=== PATIENT | male | born 1990 | race Caucasian/White ===

== ENCOUNTER 2016-11-21 00:42 | Emergency (ER) | payer SELFPAY ==
[2016-11-21 00:59] VITALS: BP 144/102
[2016-11-21] MEDS ORDERED: Penicillin V Potassium 500 MG Tab PO ONE (01:06)
--- NOTE | 2016-11-21 01:07 | EDM.PDOC ---
ED HPI ENT - General Chief Complaint: ENT Problem Stated Complaint: TOOTH PAIN Time Seen by Provider: 11/21/16 00:50 Source of Information: Reports: Patient, RN notes reviewed, Significant Other ( Girlfriend) History Limitations: Reports: No limitations - History of Present Illness INITIAL COMMENTS - FREE TEXT/NARRATIVE: The patient states that he developed upper right dental pain 11/19/2016. He states that he believes he had a root canal in that tooth many years ago, then the tooth later broke, and now he believes it may have re-broken. He reports having a bad-tasting oral drainage. No recent fever. He has not contacted a dentist. He does not have a primary care provider. Review of the patient's medical records finds that he was seen in this ED 2014 for a heroin overdose. His drug screen at that time was positive for opiates, benzodiazepines, and marijuana, and his alcohol level was 0.07. When asked today if he use recreational drugs, he replied that he does not, because he is on probation for reckless endangerment. - Related Data Allergies/ADRs: Allergies Allergy/AdvReac Type Severity Reaction Status Date / Time ibuprofen [From Motrin] Allergy Hives Verified 11/21/16 01:03 Home Meds: Home Meds Penicillin V Potassium [IJD: Penicillin V Potassium] 1 tab PO Q6H #40 tab [Rx] Past Medical History - Past Health History Medical/Surgical History: Denies Medical/Surgical History Social & Family History - Tobacco Use Smoking Status *Q: Current Every Day Smoker Years of Tobacco use: 9 Packs/Tins Daily: 1 - Caffeine Use Caffeine Use: Reports: None - Alcohol Use Alcohol Use History: Yes Days Per Week of Alcohol Use: 2 Number of Drinks Per Day: 4 Total Drinks Per Week: 8 Alcohol Use Frequency: Socially - Recreational Drug Use Recreational Drug Use: Yes Recreational Drug Type: Reports: Benzodiazepines, Heroin, Marijuana/Hashish Recreational Drug Use Frequency: Weekly - Living Situation & Occupation Living situation: Reports: single, with family 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[employer]) ED ROS ENT - Review of Systems Review Of Systems: See Below Constitutional: Reports: no symptoms HEENT: Reports: No symptoms Respiratory: Reports: No Symptoms Cardiovascular: Reports: No symptoms Endocrine: Reports: no symptoms GI/Abdominal: Reports: No symptoms : Reports: no symptoms Musculoskeletal: Reports: no symptoms Skin: Reports: no symptoms Neurological: Reports: No Symptoms Psychiatric: Reports: No symptoms Hematologic/Lymphatic: Reports: no symptoms Immunologic: Reports: no symptoms ED EXAM, ENT - Physical Exam Exam: See Below Exam Limited By: No limitations General Appearance: alert, WD/WN, mild distress Eye Exam: bilateral eye: EOMI, normal inspection Ears: normal external exam, normal canal, hearing grossly normal, normal TMs Nose: normal inspection, normal mucousa, no blood Mouth/Throat: Normal inspection, Normal lips, Normal oropharynx, Other (Tooth # 2 with significant decay. Tooth #3 deeply carious. Tooth #4 absent. Teeth #18 , 19 with fillings. There is gingival swelling around teeth #2 and 3, although no pointing or oral drainage is seen.) Head: atraumatic, normocephalic Neck: normal inspection, supple, non-tender, full range of motion. No: lymphadenopathy (L), lymphadenopathy (R) Course - Vital Signs Last Recorded V/S: Last Vital Signs Temp 36.4 C 11/21/16 00:50 Pulse 91 11/21/16 00:50 Resp 18 11/21/16 00:50 BP 144/102 H 11/21/16 00:50 Pulse Ox 100 11/21/16 00:50 - Orders/Labs/Meds Meds: Medications Discontinued Medications Generic Name Dose Route Start Last Admin Trade Name Maxiq PRN Reason Stop Dose Admin Lidocaine HCl 5 ml 11/21/16 01:15 11/21/16 01:27 Xylocaine 2% Jelly MUCMEM 11/21/16 01:16 Not Given ONETIME STA Lidocaine HCl 10 ml 11/21/16 01:20 11/21/16 01:27 Xylocaine 2% Jelly MUCMEM 11/21/16 01:21 10 ml ONETIME ONE Administration Lidocaine HCl Confirm 11/21/16 01:21 11/21/16 01:27 Xylocaine 2% Jelly Administered 11/21/16 01:22 Not Given Dose 10 ml .ROUTE .STK-MED ONE Penicillin V Potassium 500 mg 11/21/16 01:06 11/21/16 01:14 Veetids PO 11/21/16 01:07 500 mg ONETIME ONE Administration - Re-Assessments/Exams Free Text/Narrative Re-Assessment/Exam: 11/21/16 01:07 The patient presents with dental pain, and on examination, has advanced decay of teeth #2 and 3. I have started the patient on penicillin. For the patient's pain, I ordered some viscous lidocaine to swish and spit, however, I am not going to prescribe this, given the inherent dangers ( bradycardia, seizures) of prolonged lidocaine ingestion. The patient states that he developed hives to Motrin, however, he had no known drug allergies when he was seen here 03/03/2015 for a heroin overdose. The patient and his girlfriend pressed me rather hard to prescribe a narcotic, even Tramadol, and had numerous reasons why he wouldn't be able to see a dentist as early as tomorrow. I note, however, that the patient's dental decay is quite advanced and took some time to develop, therefore I do not see an emergency that requires the prescription of an opioid, especially in the light of the patient's prior opiate abuse. I strongly suspect that the patient and his girlfriend are drug seeking. Departure - Departure Time of Disposition: 01:13 Disposition: Home, Self-Care 01 Condition: fair Clinical Impression: Dentalgia, Dental decay, Drug-seeking behavior Prescriptions: Penicillin V Potassium [IJD: Penicillin V Potassium] 1 tab PO Q6H #40 tab Instructions: Dental Caries, [id number] Referrals: PCP,None [Primary Care Provider] - Forms: ED Department Discharge Additional Instructions: You were seen in the emergency room for upper right dental pain. On examination, you have advanced decay of teeth #2 and 3. You have been started on the antibiotic penicillin. Take one tablet every 6 hours, as prescribed. Finish the entire prescription unless told otherwise by a Dentist. As you are allergic to NSAIDs, we recommend you take [id number] Tylenol as needed for discomfort. It is IMPERATIVE that you followup with a dentist as soon as possible. If any other problems, please do not hesitate to return to the ER.
[2016-11-21] MEDS ORDERED: Lidocaine 2% Jelly 5 ML Tube MUCMEM STA (01:15)
[2016-11-21] MEDS ORDERED: Lidocaine 2% Jelly 10 ML Urojet MUCMEM ONE (01:20)
[2016-11-21] MEDS ORDERED: Lidocaine 2% Jelly 10 ML Urojet ONE (01:21)
== END 2016-11-21 01:37 | disposition home or self-care (01) ==
LOC: JD.ED 00:42
DX: K02.9 Dental caries, unspecified (principal); Z76.5 Malingerer [conscious simulation]; F17.210 Nicotine dependence, cigarettes, uncomplicated; Z88.6 Allergy status to analgesic agent
CPT/HCPCS: 99283; A9270

== ENCOUNTER 2017-03-31 12:36 | Emergency (ER) | payer SELFPAY ==
[2017-03-31 12:49] VITALS: BP 138/89
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
--- NOTE | 2017-04-02 13:32 | CR ---
Right hand: Four views of the right hand were obtained. Comparison: No previous study. Fracture identified within the distal fifth metacarpal with mild apex posterior angulation. Diffuse soft tissue swelling is present. Deformity seen of the first metacarpal which has the appearance of old partially healed fracture. No additional fracture or other bony abnormality is seen. Impression: 1. Slightly angulated distal right fifth metacarpal fracture. Soft tissue swelling. 2. Deformity from partially healed first metacarpal fracture. Diagnostic code #3
== END 2017-03-31 13:58 | disposition home or self-care (01) ==
LOC: JD.ED 12:36
DX: S62.336A Displaced fracture of neck of fifth metacarpal bone, right hand, initial encounter for closed fracture (principal); F17.210 Nicotine dependence, cigarettes, uncomplicated; Z88.6 Allergy status to analgesic agent; F41.0 Panic disorder [episodic paroxysmal anxiety]; Z79.899 Other long term (current) drug therapy; Y04.0XXA Assault by unarmed brawl or fight, initial encounter
CPT/HCPCS: 29125; 73130-26-RT; 73130-RT; 99282; 99283-25